=== PATIENT | male | born 2005 | race Caucasian/White ===

== ENCOUNTER 2024-08-13 10:36 | Emergency (ER) | payer MEDICAID, SELFPAY ==
--- NOTE | 2024-08-13 10:50 | XR_ITS ---
Examination: Ribs, left, with PA chest, 5 views Technique: Chest PA, RIBS AP, RPO, LPO, AP coned lower ribs 5 views Exam date and time: August 13, 2024 1108 hours INDICATIONS: Patient fell last night with injury to left chest, left rib pain Findings: Normal heart size No pneumothorax Normal bone density No acute rib fractures IMPRESSION: No pneumothorax pulmonary contusion or hemothorax No acute left rib fractures
[2024-08-13 10:51] VITALS: BP 150/86; PULSE 81; RESP 18; TEMP 37.2; O2SAT 99; BMI 25.8
[2024-08-13] MEDS: IBUPROFEN TAB 400 MG TABLET 800 MG PO (11:08)
--- NOTE | 2024-08-13 12:03 | PD.EDADULT ---
ED General RME/HPI General Chief complaint: Shortness of Breath/Dyspnea Stated complaint: PAIN IN LEFT RIBS X 0400; HEARD 'POP' Time Seen by Provider: 08/13/24 10:40 Arrival date/time: 08/13/24 10:36 19-year-old male presents emergency department today stating he twisted in his bed last night when he turned over he developed pain in the left side of his ribs patient reports pain with movement and deep inspiration Limitations: no limitations Related Data Previous Rx's ?Medication ?Instructions ?Recorded pxodfdfu-rmypcgrgh-fpwbwtcqt 3.5 4 drp otic (ear) TID #10 mL 02/08/18 mg-10,000 unit/mL-1 % ear drops,susp ibuprofen 800 mg tablet 800 mg PO TID PRN pain #30 tabs 08/13/24 Allergies Allergy/AdvReac Type Severity Reaction Status Date / Time No Known Allergies Allergy Verified 08/13/24 10:38 Review of Systems Review of Systems Systems Reviewed: All systems reviewed, normal except as documented Constitutional Constitutional: Reports system reviewed and no additional complaints, except as documented, Denies fever(s) and Denies headache(s) Eyes Eyes: Reports system reviewed and no additional complaints, except as documented and Denies blurry vision ENT Ears, Nose, Mouth, and Throat: Reports system reviewed and no additional complaints, except as documented, Denies headache(s), Denies nasal congestion and Denies nasal discharge Cardiovascular Cardiovascular: Reports system reviewed and no additional complaints, except as documented, Denies chest pain and Denies dyspnea Respiratory Respiratory: Reports system reviewed and no additional complaints, except as documented, Denies chest congestion, Denies cough and Denies dyspnea Gastrointestinal Gastrointestinal: Reports system reviewed and no additional complaints, except as documented and Denies abdominal pain Musculoskeletal Musculoskeletal: Reports system reviewed and no additional complaints, except as documented and Reports other (Left-sided rib pain) Integumentary/Breasts Skin/Breast: Reports system reviewed and no additional complaints, except as documented and Denies rash Neurologic Neurologic: Reports system reviewed and no additional complaints, except as documented, Reports as per HPI and Denies headache(s) Past Medical History Past Medical History CARDIAC: Negative Congestive Heart Failure RESPIRATORY: Negative Chronic Obstructive Pulmonary Disease (COPD) GENITOURINARY: Negative Renal Disease ENDOCRINE: Negative Diabetes Mellitus Type 1 or Diabetes Mellitus Type 2 Social History SMOKING STATUS: Never smoker ED Exam General Limitations: Present no limitations General appearance: Present alert and in no apparent distress Head Head exam: Present atraumatic Eye Eye exam: Present normal appearance, PERRL and EOMI ENT ENT exam: Present normal exam, normal oropharynx and mucous membranes moist Neck Neck exam: Present normal inspection, full ROM and trachea midline Chest Chest inspection: Present normal inspection, symmetric chest wall rise and tenderness (Left-sided pain) Respiratory Respiratory exam: Present normal lung sounds bilaterally; Absent respiratory distress, wheezes, stridor, accessory muscle use or prolonged expiratory phase Cardiovascular Cardiovascular exam: Present regular rate, normal rhythm and normal heart sounds Abdominal Exam Abdominal exam: Present soft and normal bowel sounds Extremities Exam Extremities exam: Present normal inspection and full ROM Back Exam Back exam: Present normal inspection and full ROM Neurological Exam Neurological exam: Present alert, oriented X3, CN II-XII intact, normal gait and reflexes normal; Absent motor sensory deficit Psychiatric Psychiatric exam: Present normal affect and normal mood Skin Skin exam: Present warm, dry, intact and normal color Course Quality Measures none Orders Category Date Time Status XR ribs LT min 3V w CXR1V Stat Exams 08/13/24 10:50 Taken Ibuprofen Tab [Motrin Tab] Med 08/13/24 10:50 Discontinued 800 mg PO X1 ONE Vital Signs Vital signs: Vital Signs Temperature 98.9 F 08/13/24 10:51 Pulse Rate 81 08/13/24 10:51 Respiratory Rate 18 08/13/24 10:51 Blood Pressure 150/86 H 08/13/24 10:51 Pulse Oximetry (%) 99 08/13/24 10:51 Oxygen Delivery Method Room Air 08/13/24 10:51 O2 saturation 99% on room air within normal limits MDM Patient data External records reviewed:: [facility] previous records Clinical information provided by:: patient Social determinants that could affect healthcare access:: none Patient has the following chronic illnesses:: None How is presenting disease/condition affected by chronic disease/condition?: no chronic disease Evaluation data The following diagnostics were reviewed and interpreted by me:: radiology exam(s) Lab and/or radiology exams considered but not ordered:: Radiology obtain Interpretation Summary: Reviewed by me Medications Medications considered but not ordered:: Given Medication administrations:: Medication Administration History Discontinued Medications Ibuprofen (Ibuprofen Tab 400 Mg Tablet) 800 mg PO X1 ONE Stop: 08/13/24 10:51 Last Admin: 08/13/24 11:08 Dose: 800 mg Documented By: CS Given Consultations Consultation(s) initiated? (list below): No Diagnosis Differential Diagnosis ED Complaint MDM: Rib contusion, rib fracture, pulmonary contusion Most likely diagnosis given after review of the tests above:: Rib contusion Admission Indicated Admission indicated?: not indicated Explain why admission is indicated or not indicated:: No criteria Admission Request Was there a request for admission?: No Disposition Plan Disposition Plan: Discharge Discharge Attestation Discharge Attestation: The patient and all family members were given an opportunity to ask questions and understood the discharge instructions. Discharge instructions specifically effects, indications for sooner follow up or return to the emergency department, and the expected course of current diagnosis. Patient condition: Stable Medical Decision Making MDM Narrative MDM Narrative: 19-year-old male presents emergency department today stating he twisted in his bed last night when he turned over he developed pain in the left side of his ribs patient reports pain with movement and deep inspiration On exam patient well-appearing patient does not appear ill or toxic and in no acute distress X-ray obtained no acute fracture dislocation noted no acute bony abnormality Patient discharged home in no distress to follow-up with primary care doctor in the next 24 to 48 hours and for any worsening symptoms to return to the ER immediately Differential Diagnosis Differential Diagnosis: Rib contusion, rib fracture, pulmonary contusion Medical Records Medical records reviewed: Yes I reviewed the patient's medical records. Radiology Data Radiology results reviewed: Yes I reviewed the patient's radiology results. Discharge Plan Plan Patient Disposition: HOME (Self Care) Disposition Comment: Stable Prescriptions/Referrals Prescriptions/Med Rec: New ibuprofen 800 mg tablet 800 mg PO TID PRN (Reason: pain) Qty: 30 0RF No Action odolmwpm-iaadddtsf-WX 3.5-10,000-1 mg/mL-unit/mL-% drops,suspension 4 drp BOTH EARS TID Qty: 10 0RF Referrals: Marielena Scott MD [Primary Care Provider] - 08/14/24 Problem List Clinical Impression: Rib pain on left side Patient/Caregiver Discharge Instructions Education Materials: ED Chest Pain, Noncardiac Additional Instructions: Please follow up with your primary care doctor in the next 24-48hrs for any worsening symptoms return here immediately Print Language: Zambian Stand Alone Forms: Riana Award Info., Work/School Release, Patient Portal Info Letter PA/[employer]SEM[employer] Supervising Physician PA/[employer]ER Supervising Physician: Dr. Thorne
== END 2024-08-13 12:11 | disposition home or self-care (01) ==
PROVIDERS: Emergency Provider Emergency Medicine; PCP Family Medicine
DX: R07.81 Pleurodynia (principal)
CPT/HCPCS: 71101; 99283; A9270

== ENCOUNTER 2024-12-25 16:29 | Emergency (ER) | payer MEDICAID, SELFPAY ==
[2024-12-25 16:30] VITALS: BMI 24.3
[2024-12-25 16:49] VITALS: BP 117/70; PULSE 76; RESP 18; TEMP 37.2; O2SAT 96; BMI 24.3
--- NOTE | 2024-12-25 16:53 | EDRME_ITS ---
Rapid Medical Screening Exam RME Arrival date/time: 12/25/24 16:29 19-year-old male with no known medical history presents to the emergency room with a chief complaint of nausea, vomiting, abdominal distention, constipation x 7 days I have greeted and performed a focused initial assessment of this patient. A com prehensive ED assessment and evaluation of the patient, analysis of all test results, and completion of the medical decision making process will be conducted by additional ED providers. Chief Complaint: Abdominal Pain Time Seen by Provider: 12/25/24 16:44 Vital signs: Vital Signs Temperature 98.9 F 12/25/24 16:49 Pulse Rate 76 12/25/24 16:49 Respiratory Rate 18 12/25/24 16:49 Blood Pressure 117/70 12/25/24 16:49 Pulse Oximetry (%) 96 12/25/24 16:49 Oxygen Delivery Method Room Air 12/25/24 16:49 Vital signs reviewed by provider: Yes
--- NOTE | 2024-12-25 16:53 | XR_ITS ---
Examination: CT abdomen and pelvis without contrast. Coronal 3-D reconstructions. Sagittal 2-D reconstructions. Date and time of exam:December 25, 2024 1702 hours Abdominal pain and distention 5 days CTDI: vol (mGy): 7.98 DLP: (mGycm): 425 Technique: Axial images of the abdomen have been obtained, 3 mm slice thickness Intravenous contrast material has not been administered. Low dose protocols were performed. One or more of the following dose reduction techniques were used; automated exposure control, adjustment of the mA and/or KV according to patient size, use of iterative reconstruction technique. Findings: Liver or splenic lesion No gallstones No pancreatic or adrenal mass No renal or ureteral calculi, no hydronephrosis Aorta normal size Normal appendix No bowel obstruction or diverticulitis Contracted urinary bladder The osseous structures are intact IMPRESSION: No renal or ureteral calculi, no hydronephrosis Normal appendix No bowel obstruction or diverticulitis
[2024-12-25 17:28] LABS: Basophils % (Auto) 0 % (0-2.5); Eosinophils # (Auto) 0.1 Thou/mm3 (0.0-0.5); Eosinophils % (Auto) 1 % (0-10); Hematocrit 40.9 % (41.0-53.0); Immature Granulocytes % (Auto) 0 % (0-0); Immature Granulocytes Auto 0.02 Thou/mm3 (0.00-0.00); Lymphocytes % (Auto) 23 % (10-50); Mean Corpuscular HGB Conc 34.2 g/dl (31.0-37.0); Mean Corpuscular Volume 85 fL (80-100); Monocytes # (Auto) 0.7 Thou/mm3 (0.0-0.8); Monocytes % (Auto) 7 % (0-12); Neutrophils # (Auto) 6.2 Thou/mm3 (1.8-7.7); Neutrophils % (Auto) 69 % (37-80); Nucleated Red Blood Cell % 0 /100 WBC (0); Platelet Count 266 Thou/mm3 (140-440); RDW Standard Deviation 41.5 fL (35.1-43.9); Red Blood Count 4.83 Miln/mm3 (4.50-5.90)
--- NOTE | 2024-12-25 17:53 | PD.EDABDPN ---
ED Abdominal Pain RME/HPI General Chief Complaint: Abdominal Pain Stated complaint: MID ABD PAIN X1 WEEK WITH N/V Time seen by provider: 12/25/24 16:44 Arrival date/time: 12/25/24 16:29 RME / HPI RME / HPI narrative: 19-year-old male with no known medical history presents to the emergency room with a chief complaint of nausea, vomiting, abdominal distention, constipation x 7 days denies any fever. Denies any other complaints no medications taken prior to arrival. Related Data Previous Rx's ?Medication ?Instructions ?Recorded xybpuidp-adbcpogoa-uuzvieamx 3.5 4 drp otic (ear) TID #10 mL 02/08/18 mg-10,000 unit/mL-1 % ear drops,susp ibuprofen 800 mg tablet 800 mg PO TID PRN pain #30 tabs 08/13/24 peg 3350-electrolytes 236 240 ml PO Q10M #4,000 mL 12/25/24 gram-22.74 gram-6.74 gram-5.86 gram solution (GaviLyte-G) Allergies Allergy/AdvReac Type Severity Reaction Status Date / Time No Known Allergies Allergy Verified 12/25/24 16:32 Review of Systems Review of Systems Narrative Review of Systems: Review of system reviewed and within normal limits except mentioned in HPI ED Exam Narrative Physical exam: VITAL SIGNS: Reviewed. GENERAL APPEARANCE: Alert and interactive, follows commands, no acute distress, HEAD AND FACE: Non-traumatic. ENT: PERRL, pink conjunctivitis, eyelid no trauma, Mucous membrane moist. NECK: Supple, nontender, no nuchal rigidity. CHEST: No tenderness, no crepitus, no paradoxical movement, no retractions. LUNGS: Clear, well ventilated, symmetric, no rales, no wheezing, no ronchi, no stridor, good breath sounds bilaterally. HEART: Regular rate, regular rhythm, no murmur, no gallops. ABDOMEN: Soft, positive bowel sounds, nondistended, no guarding, nontender, no rebound, no masses, RECTAL: Deferred. GENITAL: Deferred. NEUROLOGICAL: Gross motor function intact sensory function intact, Appropriate for age. MUSCULOSKELETAL: low back nontender, full range of motion. EXTREMITIES: Nontender, full range of motion. SKIN: Color pink, dry, no rash, no lacerations, no abrasions, no contusions. LYMPHATICS: Deferred. Course Quality Measures none Orders Category Date Time Status Fleet [Enema Administration] ONCE Care 12/25/24 17:[address] abdomen pelvis wo con Stat Exams 12/25/24 16:53 Completed CBC Stat Lab 12/25/24 17:13 Completed CMP [Comprehensive Metabolic Panel] Stat Lab 12/25/24 17:13 Completed Lipase Stat Lab 12/25/24 17:13 Completed UA [Urinalysis] Stat Lab 12/25/24 17:51 Completed Urine Culture Stat Lab 12/25/24 17:51 Received Magnesium Citrate Liqd [Citrate of Magnesia Liqd] Med 12/25/24 17:52 Discontinued 300 ml PO X1 ONE Ondansetron Odt [Zofran Odt] Med 12/25/24 17:52 Discontinued 4 mg PO X1 ONE Vital Signs Vital signs: Vital Signs Temperature 98.9 F 12/25/24 16:49 Pulse Rate 76 12/25/24 16:49 Respiratory Rate 18 12/25/24 16:49 Blood Pressure 117/70 12/25/24 16:49 Pulse Oximetry (%) 96 12/25/24 16:49 Oxygen Delivery Method Room Air 12/25/24 16:49 Abdominal Pain [facility] Narrative [facility] Narrative:: 19-year-old male with no known medical history presents to the emergency room with a chief complaint of nausea, vomiting, abdominal distention, constipation x 7 days denies any fever. Denies any other complaints no medications taken prior to arrival. Patient's workup today all came back unremarkable. CT scan of the abdomen and pelvis also came back unremarkable. Results discussed with the patient. Patient appears nontoxic and hemodynamically stable. Patient discharged home and instructed to follow-up with primary care provider in 24 to 48 hours. Instructed to return to the emergency department immediately if worsening of symptoms Patient data External records reviewed:: None Clinical information provided by:: patient Social determinants that could affect healthcare access:: none Patient has the following chronic illnesses:: None How is presenting disease/condition affected by chronic disease/condition?: no chronic disease Evaluation data The following diagnostics were reviewed and interpreted by me:: lab results and radiology exam(s) Lab and/or radiology exams considered but not ordered:: None Interpretation Summary: See results in MDM Medications / Prescriptions Medications or Prescriptions considered but not ordered:: None Medication administrations:: Medication Administration History Discontinued Medications Magnesium Citrate (Magnesium Citrate 300 Ml Btl) 300 ml PO X1 ONE Stop: 12/25/24 17:53 Last Admin: 12/25/24 18:01 Dose: 300 ml Documented By: COLT Ondansetron HCl (Ondansetron Odt 4 Mg Tabrap) 4 mg PO X1 ONE; Protocol Stop: 12/25/24 17:53 Last Admin: 12/25/24 17:59 Dose: 4 mg Documented By: COLT Mag Citrate Zofran Consultations Consultation(s) initiated? (list below): No Diagnosis Differential diagnosis abdominal pain: abdominal pain, constipation and small bowel obstruction Most likely diagnosis given after review of the tests above:: Constipation Admission Indicated Admission indicated?: not indicated Explain why admission is indicated or not indicated:: Stable Admission Request Was there a request for admission?: No Disposition Plan Disposition Plan: Discharge Discharge Attestation Discharge Attestation: The patient was given an opportunity to ask questions and understood the discharge instructions. Discharge instructions specifically effects, indications for sooner follow up or return to the emergency department, and the expected course of current diagnosis. Patient condition: Stable Discharge Plan Plan Patient Disposition: HOME (Self Care) Discharge Disposition comment: Stable Prescriptions/Referrals Prescriptions/Med Rec: New peg 3350-electrolytes [GaviLyte-G] 236-22.74-6.74 -5.86 gram recon soln 240 ml PO Q10M Qty: 4000 0RF Rx Instructions: until fecal effluent is clear No Action quimtdmz-vtvicxirt-AS 3.5-10,000-1 mg/mL-unit/mL-% drops,suspension 4 drp BOTH EARS TID Qty: 10 0RF ibuprofen 800 mg tablet 800 mg PO TID PRN (Reason: pain) Qty: 30 0RF Referrals: No Primary/Family,Physician [Primary Care Provider] - In 1 week Problem List Clinical Impression: Constipation Patient/Caregiver Discharge Instructions Discharge Activity: activity as tolerated Education Materials: Treating Constipation Additional Instructions: Thank you for the opportunity for serving you today. You are stable for discharged . You are advised to: Follow-up with your PCP in 1 to 2 days Return to ED for worsening of symptoms Increase oral fluids Take medication as prescribed Print Language: Icelandic Stand Alone Forms: Riana Award Info., Work/School Release, Patient Portal Info Letter
[2024-12-25 17:57] LABS: Alanine Aminotransferase 8 U/L (10-49); Albumin, Serum 5.2 gm/dL (3.5-5.0); Albumin/Globulin Ratio 1.8 (1.2-2.2); Alkaline Phosphatase 67 U/L (46-116); Anion Gap 7 (7-16); Aspartate Amino Transferase 18 U/L (0-34); BUN/Creatinine Ratio 8 Ratio (12-20); Bilirubin,Total 0.6 mg/dL (0.3-1.2); Blood Urea Nitrogen 8 mg/dL (9-23); Calcium 9.8 mg/dL (8.3-10.6); Calcium (Corrected) 9.8 mg/dL (8.5-10.1); Carbon Dioxide 28.8 mMol/L (20.0-31.0); Chloride 105 mMol/L (98-107); Estimated Creatinine Clearance 135.9 mL/min (>60); Globulin 2.9 gm/dL (2.3-3.5); Glucose 98 mg/dL (74-106); Lipase 27 U/L (12-53); Osmolality,Calculated 279 (275-295); Potassium 4.4 mMol/L (3.4-5.1); Sodium 141 mMol/L (136-145); Total Protein 8.1 gm/dL (5.7-8.2); eGFR > 60 See Note
[2024-12-25] MEDS: ONDANSETRON ODT 4 MG TABRAP PO (17:59)
[2024-12-25] MEDS: MAGNESIUM CITRATE 300 ML BTL PO (18:01)
[2024-12-25 18:18] VITALS: BP 120/75; PULSE 62; RESP 18; TEMP 36.8; O2SAT 97
[2024-12-25 18:21] LABS: Collection Type, Urine Clean Catch; Squamous Epithelial Cell,Urine 0 /hpf (0-5)
[2024-12-25 18:50] LABS: Bilirubin,Urine 1+ (Negative); Blood,Urine Negative (Negative); Clarity,Urine Turbid (Clear/Hazy); Color,Urine Yellow (Lt Yel-Yel); Glucose, Urine Negative (Negative); Ketones,Urine Trace (Negative); Leukocyte Esterase,Urine Negative (Negative); Nitrite,Urine Negative (Negative); PH,Urine 6.5 (5.0-7.0); Protein,Urine 1+ (Neg - Trace); RBC,Urine 11 /hpf (0-3); Specific Gravity,Urine 1.039 (1.001-1.035); WBC,Urine 4 /hpf (0-5)
[2024-12-25 19:32] VITALS: BP 135/85; PULSE 72; RESP 16; TEMP 37; O2SAT 100
== END 2024-12-25 19:33 | disposition home or self-care (01) ==
PROVIDERS: Nurse Practitioner Family; Emergency Provider Family Medicine
DX: K59.00 Constipation, unspecified (principal)
CPT/HCPCS: 36415; 74176; 80053; 81001; 83690; 85025; 87086; 99284; Q0162; A9270